=== PATIENT | female | born 1975 | race Caucasian/White ===

== ENCOUNTER 2018-06-10 16:30 | Inpatient (IN) | payer SELFPAY ==
[2018-06-10] MEDS: Lactated Ringers 1,000 ML 50 ML IV (16:30)
[2018-06-10] MEDS: 0.9% Saline Lock 10 ML Syringe IV (16:30)
[2018-06-10 16:45] VITALS: BMI 24.3
[2018-06-10 16:55] LABS: Hematocrit 35.8 % (37-47); Hemoglobin 11.9 g/dl (12.0-15.0); Mean Corp Hgb Conc 33.2 g/gl (32-36); Mean Corpuscular Hgb 33.1 pg (27.0-32.0); Mean Corpuscular Volume 99.7 fL (81-99); Mean Platelet Vol. 9.3 fl (6.2-12.0); Platelet Count 123 K/mm3 (150-450); RBC Distribution Width CV 14.3 % (11.6-14.6); Red Blood Count 3.59 M/mm3 (4.2-5.4); White Blood Count 9.2 K/mm3 (4.4-11.0)
[2018-06-10 17:03] LABS: Scan Indicated on CBC? Y/N NO
[2018-06-10] MEDS: Oxytocin 30 units/NS 500 ml 30 UNITS/500 ML IV.SOLN 334 UNITS IV (17:15)
--- NOTE | 2018-06-10 17:39 | OP.PCM_ITS ---
- Problem List (1) 38 weeks gestation of Status: Acute (2) Vacuum extractor delivery, delivered Status: Acute Vaginal Delivery Maternal Presentation: Active Labor Amniotic Membrane Rupture Type: Spontaneous at home Rupture of Membrane time: 06/10/18 0000h Amniotic Fluid Description: Clear, - - terminal mec Final ARNOLD: 06/20/18 Final ARNOLD Source: US <20 weeks Gestational age: 38 Weeks and 4 Days [place] doctor who attended delivery (if requested by OB): Irma Hines Date of Procedure: 06/10/18 Pre-Operative Diagnosis: 38 4/7wga, Cat II FHR, terminal deceleration Post-Operative Diagnosis: 38 4/7wga, Cat II FHR, terminal deceleration Surgery/ Procedure Performed: Vacuum Assisted Vaginal Delivery Type of Anesthesia: None Description of Procedure: FHR Cat II with small variable deceleration followed by prolonged deceleration. Patient given oxygen and turned on her side. SVE anterior lip, +2 station. ISE placed with short term return of FHR to baseline followed by terminal deceleration to the 60s bpm. I advised pushing with vacuum extraction and reviewed vacuum related maternal and risks. Patient and were agreeable and desired to proceed. Patient pushed with good effort to 3+ station. The vacuum was placed at the flexion point and 500 mmHg applied. A single pull was performed with excellent maternal expulsive effort to deliver the head. There were no pop-offs. The vacuum suction was released. The shoulders delivered with ease to reveal a male infant. The was placed on the maternal abdomen. The cord was doubly clamped and cut and the infant passed to the awaiting Pediatric Hospitalist at approximately 15-30 seconds of life. Cord blood specimen and cord gases were obtained. The placenta delivered spontaneously and appeared intact on inspection. A first degree perineal laceration was repaired with 3-0 Vicryl Rapide. The fundus was firm and nontender at the umbilicus. Presentation: Vertex, CARLOS Placental Delivery Description: Spontaneous Placenta Disposition: [facility] Cord Vessel Description: 3 Vessels Nuchal Cord Compression: With compression Cord Gases drawn per routine: ABG, VBG Cord Entanglement: - - Body cord Estimated Blood Loss: 350 ml Infant A gender: Male (1 minute): 7 (5 minute): 9 Episiotomy Description: None Laceration: Midline, 1st degree Medications given after delivery: IV Pitocin
--- NOTE | 2018-06-10 17:54 | PCM.DCVAG ---
Discharge Diet: No Restrictions Discharge Activity: Return to Normal Activity, May not drive while taking narcotic pain medications., May Shower May resume sexual activity in: 6 weeks Lifting Restrictions: 20-25lb Call your doctor if you observe: Fever of 101 or Higher, Inability to urinate, Inability to have a bowel movement, Using more than one pad per hour, Shortness of breath, Chest pain, Calf discomfort, Uncontrolled pain Additional Instructions: If you experience any of the following, contact your healthcare provider. Bleeding that soaks a pad every hour for 2 hours Fever 100.4 or higher Unrelieved incision or abdominal pain Swelling, redness, discharge or bleeding from your incision or episiotomy site Your incision begins to separate Problems urinating (including inability to urinate or burning while urinating). Visual changes Severe headache Flu-like symptoms Pain or redness in one of both of your breasts Pain, warmth, tenderness or swelling in your legs, especially the calf area Frequent nausea and vomiting Symptoms of depression or anxiety If you experience any of the following, call 911 or go to the nearest Emergency Room. Chest pain Problems breathing Seizure activity Partial or complete paralysis of a body part, slurred speech, weakness or drooping of the face, or a sudden inability to walk or hold your balance Allergies/Adverse Reactions: Allergies No Known Allergies Allergy (Verified 06/10/18 18:32) Medications to take at Discharge Iron 324 mg PO DAILY 06/10/18 Formula Tablet 1 tab PO DAILY 06/10/18 Please Follow Up With: Jeremi Lima DO When: 2 weeks for visit Test Results: Test results from this visit will be discussed in further detail at your follow-up appointment, if applicable.
--- NOTE | 2018-06-10 17:56 | DCINST_ITS ---
Discharge Diet: No Restrictions Discharge Activity: Return to Normal Activity, May not drive while taking narcotic pain medications., May Shower May resume sexual activity in: 6 weeks Lifting Restrictions: 20-25lb Call your doctor if you observe: Fever of 101 or Higher, Inability to urinate, Inability to have a bowel movement, Using more than one pad per hour, Shortness of breath, Chest pain, Calf discomfort, Uncontrolled pain Additional Instructions: If you experience any of the following, contact your healthcare provider. * Bleeding that soaks a pad every hour for 2 hours * Fever 100.4 or higher * Unrelieved incision or abdominal pain * Swelling, redness, discharge or bleeding from your incision or episiotomy site * Your incision begins to separate * Problems urinating (including inability to urinate or burning while urinating) . * Visual changes * Severe headache * Flu-like symptoms * Pain or redness in one of both of your breasts * Pain, warmth, tenderness or swelling in your legs, especially the calf area * Frequent nausea and vomiting * Symptoms of depression or anxiety If you experience any of the following, call 911 or go to the nearest Emergency Room. * Chest pain * Problems breathing * Seizure activity * Partial or complete paralysis of a body part, slurred speech, weakness or drooping of the face, or a sudden inability to walk or hold your balance Allergies/Adverse Reactions: Allergies No Known Allergies Allergy (Verified 06/10/18 18:32) Medications to take at Discharge Iron 324 mg PO DAILY 06/10/18 Formula Tablet 1 tab PO DAILY 06/10/18 Please Follow Up With: Jeremi Lima DO When: 2 weeks for visit Test Results: Test results from this visit will be discussed in further detail at your follow- up appointment, if applicable.
--- NOTE | 2018-06-10 17:58 | PCM.HP.OB ---
- Problem List (1) 38 weeks gestation of Status: Acute History Date of Admission: 06/10/18 Final ARNOLD: 06/20/18 Final ARNOLD Source: LMP Gestational age: 38 Weeks and 4 Days History of this : This is a 43 year-old, G 12, P 9029 at 38 2/7 weeks gestational age transferred from [facility] for FHR variable decelerations in labor. She broke her water at 12am this morning and contractions began several hours later. She progressed to 4cm dilation and was given IV Ampicillin at 1415h for prolonged rupture of membranes and GBS negative status. She began to have deepening variable decelerations, thus was accepted for transfer for further obstetric care. Medical History: Medical History (Last Updated 06/10/18 @ 17:58 by Tasha Ibarra MD) Patient denies medical problems Z78.9 No known drug allergies None Smoking Status: Never smoker Alcohol: None Number of Fetus(es): 1 Heart Tracin, moderate variabiltiy, + accelerations, + variable decelerations TOCO Analysis: 4-5/10 min History Past Pregnancies: Past pregnancies: VAVD x 1 x 9 SAB x 2 Labs: O negative, Rubella immune, Hep B surface Ag negative, RPR nonreactive Expected Delivery Method: Vacuum Extraction Number of Visits: 5 Review of Systems Constitutional: Reports: Weakness. Denies: Chills, Fever Gynecological: Reports: - - Feels urge to push. 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 See vaginal delivery note. -Admit to [facility] for routine care -f/u bleed screen -Dr. Lima notified and updated of patient and statuses
--- NOTE | 2018-06-10 18:02 | HP.PCM_ITS ---
- Problem List (1) 38 weeks gestation of Status: Acute History Date of Admission: 06/10/18 Final ARNOLD: 06/20/18 Final ARNOLD Source: LMP Gestational age: 38 Weeks and 4 Days History of this : This is a 43 year-old, G 12, P 9029 at 38 2/7 weeks gestational age transferred from [facility] for FHR variable decelerations in labor. She broke her water at 12am this morning and contractions began several hours later. She progressed to 4cm dilation and was given IV Ampicillin at 1415h for prolonged rupture of membranes and GBS negative status. She began to have deepening variable decelerations, thus was accepted for transfer for further obstetric care. Medical History: Medical History (Last Updated 06/10/18 @ 17:58 by Tasha Ibarra MD) Patient denies medical problems Z78.9 No known drug allergies None Smoking Status: Never smoker Alcohol: None Number of Fetus(es): 1 Heart Tracin, moderate variabiltiy, + accelerations, + variable decelerations TOCO Analysis: 4-5/10 min History Past Pregnancies: Past pregnancies: VAVD x 1 x 9 SAB x 2 Labs: O negative, Rubella immune, Hep B surface Ag negative, RPR nonreactive Expected Delivery Method: Vacuum Extraction Number of Visits: 5 Review of Systems Constitutional: Reports: Weakness. Denies: Chills, Fever Gynecological: Reports: - - Feels urge to push. 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 See vaginal delivery note. -Admit to [facility] for routine care -f/u bleed screen -Dr. Lima notified and updated of patient and statuses
[2018-06-10] MEDS: Oxytocin 30 units/NS 500 ml 30 UNITS/500 ML IV.SOLN 167 UNITS IV (18:11)
[2018-06-10] MEDS: Acetaminophen 500 MG Tablet PO (21:57)
[2018-06-10 22:00] VITALS: BP 109/53; PULSE 88; RESP 16; TEMP 37.3; O2SAT 95
--- NOTE | 2018-06-10 23:34 | NURSING ---
Taking over pt care at this time.
[2018-06-10 23:38] VITALS: BP 99/46; PULSE 70; RESP 16; TEMP 36.4; O2SAT 96
[2018-06-11 03:25] VITALS: BP 97/59; PULSE 60; RESP 18; TEMP 36.7; O2SAT 99
[2018-06-11] MEDS: Ibuprofen 600 MG Tablet PO (03:37)
[2018-06-11 08:00] VITALS: BP 95/57; PULSE 71; RESP 20; TEMP 36.8
--- NOTE | 2018-06-11 08:18 | PCM.PN.OB ---
Patient Problems: Active and Suspected Problems (Last Updated 06/10/18 @ 17:59 by Tahsa Ibarra MD) 38 weeks gestation of (Acute) Vacuum extractor delivery, delivered (Acute) History of repair of hiatal hernia (Acute) Subjective: No issues overnight. Infant is nursing well. Denies heavy lochia. Has mild cramping, no complaints. Objective: AVSS - Physical Exam General: Alert, Oriented x3, Cooperative, No apparent distress HEENT: Atraumatic, Normocephalic Lungs: Clear to auscultation, Normal air movement Cardiovascular: Regular rate, Regular Rhythm, Normal S1, Normal S2 Abdomen: Soft, Non Tender, Non-Distended, - - Fundus firm and nontender, lochia scant Extremities: No edema, No Calf Tenderness Neurological: Neuro grossly intact Psych/Mental Status: Normal Affect, Appropriate, Alert and oriented to time, place, person, mood and affect Vital Signs Temp Pulse Resp BP Pulse Ox 98.1 F 60 18 97/59 L 99 06/11/18 03:25 06/11/18 03:25 06/11/18 03:25 06/11/18 03:25 06/11/18 03:25 Oxygen Delivery Method Room Air Weight: 62.142 kg Body Mass Index (BMI) 24.3 Intake and Output for Last 24 Hours 06/09/18 06/10/18 06/11/18 23:59 23:59 23:59 Intake Total 200 / 200 Balance 200 / 200 Laboratory Tests Past 24 Hrs 06/10/18 06/10/18 06/10/18 16:40 16:40 16:40 WBC 9.2 RBC 3.59 L Hgb 11.9 L Hct 35.8 L MCV 99.7 H MCH 33.1 H MCHC 33.2 RDW 14.3 RDW Differential 52.0 H Plt Count 123 L MPV 9.3 Blood Type O NEGATIVE Antibody Screen TNP NEGATIVE Medical Necessity - Tobacco Use Smoking Status: Never smoker Assessment/Plan All Active Problems (Last Updated 06/10/18 @ 17:59 by Tasha Ibarra MD) 38 weeks gestation of (Acute) Vacuum extractor delivery, delivered (Acute) History of repair of hiatal hernia (Acute) This is a 43 year-old, G 12 P 10 -0-2-10 PPD#1 s/p VAVD doing well. -Rh negative, also Rh negative -Rubella immune -Routine care - -Plan for d/c home today
[2018-06-11 12:00] VITALS: BP 98/62; PULSE 69; RESP 16; TEMP 36.9
[2018-06-11] MEDS: Acetaminophen 500 MG Tablet PO (16:35)
[2018-06-11 17:10] VITALS: BP 99/59; PULSE 77; RESP 16; TEMP 36.9
--- NOTE | 2018-06-11 19:06 | NURSING ---
infant placed in car seat per parents dc to home
== END 2018-06-11 19:10 | disposition home or self-care (01) | DRG 775 ==
PROVIDERS: Admitting Provider Obstetrics & Gynecology; Visit Provider Obstetrics & Gynecology
DX: O76 Abnormality in fetal heart rate and rhythm complicating labor and delivery (principal); Z37.0 Single live birth; Z3A.38 38 weeks gestation of pregnancy; O70.0 First degree perineal laceration during delivery; O42.92 Full-term premature rupture of membranes, unspecified as to length of time between rupture and onset of labor
CPT/HCPCS: 85027; 86850; 86900; 99218; J7120; A4216; G0378